=== PATIENT | female | born 1985 | race Caucasian/White ===

== ENCOUNTER 2018-06-18 04:35 | Emergency (ER) | payer MEDICARE, OTHER ==
[~2018-06-18] VITALS: Ht 170.1 cm; Wt 61.2 kg
[~2018-06-18 04:35] MED LIST: ACULAR 0.5%3 ML OPH; AMOXICILLIN500 MG PO; ANAPROX DS550 MG PO; AUGMENTIN 875 M1 TAB PO; BACTRIM DS 8001 TA1 PO; CATAFLAM50 MG PO; CLARITIN10 MG PO; COMPAZINE10 MG PO; DARVOCET N 1001 TAB PO; FLAGYL500 MG PO; KEFLEX500 MG PO; MEDROL DOSEPAK4 MG PO; MOTRIN800 MG PO; NAPROSYN500 MG PO; NKHM; NORCO 5-325 TA1 EACH PO; PROVENTIL0.09 MG/AC IH; TYLENOL W/CODEI1 TA2 PO; Tobrex Ophth S2.5 ML OPH; VIBRAMYCIN100 MG PO; VICODIN 5/500 505 MG PO; VICOPROFEN 7.51 TA1 PO; VICOPROFEN PO
[2018-06-18 04:36] VITALS: BP 143/94
== END 2018-06-18 05:36 | disposition left against medical advice (07) ==
LOC: ED 04:35
DX: F32.9 Major depressive disorder, single episode, unspecified (principal); Z53.20 Procedure and treatment not carried out because of patient's decision for unspecified reasons; Z88.6 Allergy status to analgesic agent